=== PATIENT | female | born 1965 | race African-American/Black ===

== ENCOUNTER → 2018-09-01 | Outpatient (CLI) | payer OTHER | LOC: ULTRA 10:11 | DX: M79.89 Other specified soft tissue disorders (principal); M79.605 Pain in left leg ==

== ENCOUNTER → 2019-04-08 | Outpatient (CLI) | payer BC | LOC: RAD 02:18 | DX: Z12.31 Encounter for screening mammogram for malignant neoplasm of breast (principal) ==